=== PATIENT | male | born 1985 | race Hispanic/Latino ===

== ENCOUNTER 2021-07-10 17:18 | Emergency (ER) | payer OTHER ==
[~2021-07-10] VITALS: Ht 172.7 cm; Wt 68.0 kg
[2021-07-10] MEDS ORDERED: IBUPROFEN600 MG PO (18:53)
== END 2021-07-10 19:01 | disposition home or self-care (01) ==
LOC: FSED 17:30
DX: M79.675 Pain in left toe(s) (principal); S90.222A Contusion of left lesser toe(s) with damage to nail, initial encounter; W20.8XXA Other cause of strike by thrown, projected or falling object, initial encounter; Y93.B3 Activity, free weights; Y92.89 Other specified places as the place of occurrence of the external cause
CPT/HCPCS: 99283